=== PATIENT | male | born 1990 | race Two or more races ===

== ENCOUNTER 2025-01-09 12:35 | Emergency (ER) | payer MEDICAID, SELFPAY ==
[2025-01-09 12:36] VITALS: BMI 29.6
[2025-01-09 12:42] VITALS: BP 131/88; PULSE 86; RESP 19; TEMP 36.6; O2SAT 97
--- NOTE | 2025-01-09 12:55 | EDNOTE_ITS ---
Upper Respiratory Inf. RME/HPI General Stated Complaint: COUGH Time Seen by Provider: 01/09/25 12:54 Arrival date/time: 01/09/25 12:35 35-year-old male presents to the emergency department today for complaints of cough, congestion runny nose and generalized body aches patient for symptom onset 2 days ago reports not makes it is better or worse quality aching and no treatment prior to arrival Limitations: no limitations Related Data Home Medications ?Medication ?Instructions ?Recorded ?Confirmed tramadol 50 mg tablet 50 mg PO Q6H PRN Pain 03/04/19 Previous Rx's ?Medication ?Instructions ?Recorded ibuprofen 800 mg tablet 800 mg PO TID PRN pain #30 t abs 03/01/21 albuterol sulfate 2.5 mg/3 mL 2.5 mg (3 mL) inhalation Q6H PRN 07/26/21 (0.083 %) solution for nebulization shortness of breat h or wheezing #180 mL Ventolin HFA 90 mcg/actuation 2 puff inhalation Q6H DC N 01/09/25 aerosol inhaler (albuterol sulfate) shortness of breat h or wheezing #18 grams azithromycin 500 mg tablet See Rx Instructions PO .COM PLEX #6 01/09/25 tabs prednisone 10 mg tablet 30 mg (3 x 10 mg) PO BID 3 d ays 01/09/25 #18 tabs Allergies Allergy/AdvReac Type Severity Reaction Status Date / Time peanut Allergy Severe THROAT Verified 01/09/25 12:37 JASMIN Review of Systems Review of Systems Systems Reviewed: All systems reviewed, normal except as documented Constitutional Constitutional: Reports system reviewed and no additional complaints, except as documented, Denies fever(s) and Reports headache(s) Eyes Eyes: Reports system reviewed and no additional complaints, except as documented and Denies blurry vision ENT Ears, Nose, Mouth, and Throat: Reports system reviewed and no additional complaints, except as documented, Reports headache(s), Reports nasal congestion and Reports nasal discharge Cardiovascular Cardiovascular: Reports system reviewed and no additional complaints, except as documented, Denies chest pain and Denies dyspnea Respiratory Respiratory: Reports system reviewed and no additional complaints, except as documented, Reports chest congestion, Reports cough and Denies dyspnea Gastrointestinal Gastrointestinal: Reports system reviewed and no additional complaints, except as documented and Denies abdominal pain Integumentary/Breasts Skin/Breast: Reports system reviewed and no additional complaints, except as documented and Denies rash Neurologic Neurologic: Reports system reviewed and no additional complaints, except as documented, Reports as per HPI and Reports headache(s) Past Medical History Past Medical History CARDIAC: Negative Congestive Heart Failure RESPIRATORY: Positive Asthma; Negative Chronic Obstructive Pulmonary Disease (COPD) GENITOURINARY: Negative Renal Disease ENDOCRINE: Negative Diabetes Mellitus Type 1 or Diabetes Mellitus Type 2 Social History SMOKING STATUS: Never smoker ED Exam General Limitations: Present no limitations General appearance: Present alert and in no apparent distress Head Head exam: Present atraumatic Eye Eye exam: Present normal appearance, PERRL and EOMI ENT ENT exam: Present normal exam, normal oropharynx and mucous membranes moist Neck Neck exam: Present normal inspection, full ROM and trachea midline Chest Chest inspection: Present normal inspection and symmetric chest wall rise Respiratory Respiratory exam: Present normal lung sounds bilaterally; Absent respiratory distress, wheezes, stridor or accessory muscle use Cardiovascular Cardiovascular exam: Present regular rate, normal rhythm and normal heart sounds Abdominal Exam Abdominal exam: Present soft and normal bowel sounds; Absent distention, tenderness, guarding, rebound or rigidity Extremities Exam Extremities exam: Present normal inspection and full ROM Back Exam Back exam: Present normal inspection and full ROM Neurological Exam Neurological exam: Present alert, oriented X3 and CN II-XII intact Psychiatric Psychiatric exam: Present normal affect and normal mood Skin Skin exam: Present warm, dry, intact and normal color Course Quality Measures none Vital Signs Vital signs: Vital Signs Temperature 97.9 F 01/09/25 12:42 Pulse Rate 86 01/09/25 12:42 Respiratory Rate 19 01/09/25 12:42 Blood Pressure 131/88 H 01/09/25 12:42 Pulse Oximetry (%) 97 01/09/25 12:42 Oxygen Delivery Method Room Air 01/09/25 12:42 o2 sat 97 r.a wnl Upper Respiratory Infection MDM Narrative MDM Narrative:: 35-year-old male presents to the emergency department today for complaints of cough, congestion runny nose and generalized body aches patient for symptom onset 2 days ago reports not makes it is better or worse quality aching and no treatment prior to arrival On exam patient well-appearing patient does not appear ill or toxic no acute distress Lab work and imaging offered patient declined Symptoms consistent with URI Patient discharged home in no distress to follow-up with primary care doctor this 24 to 48 hours for worsening symptoms or concerns return immediately Patient data External records reviewed:: [facility] previous records Clinical information provided by:: patient Social determinants that could affect healthcare access:: none Patient has the following chronic illnesses:: URI How is presenting disease/condition affected by chronic disease/condition?: no chronic disease Evaluation data The following diagnostics were reviewed and interpreted by me:: other (specify) (N/A) Lab and/or radiology exams considered but not ordered:: Considered not ordered Interpretation Summary: N/A Medications / Prescriptions Medications or Prescriptions considered but not ordered:: Given Medication administrations:: Given Consultations Consultation(s) initiated? (list below): No Diagnosis Upper Respiratory Differential Diagnosis: upper respiratory infection, otitis media, sinusitis and viral infection Most likely diagnosis given after review of the tests above:: URI Admission Indicated Admission indicated?: not indicated Admission Request Was there a request for admission?: No Disposition Plan Disposition Plan: Discharge Discharge Attestation Discharge Attestation: The patient and all family members were given an opportunity to ask questions and understood the discharge instructions. Discharge instructions specifically effects, indications for sooner follow up or return to the emergency department, and the expected course of current diagnosis. Patient condition: Stable Discharge Plan Plan Patient Disposition: HOME (Self Care) Discharge Disposition comment: Stable Prescriptions/Referrals Prescriptions/Med Rec: New prednisone 10 mg tablet 30 mg PO BID 3 Days Qty: 18 0RF albuterol sulfate [Ventolin HFA] 90 mcg/actuation HFA aerosol inhaler 2 puff inhalation Q6H PRN (Reason: shortness of breath or wheezing) Qty: 18 0RF azithromycin 500 mg tablet See Rx Instructions .ROUTE .COMPLEX Qty: 6 0RF Rx Instructions: take 500 mg today (day 1), then 250 mg for 4 days (days 2-5) No Action ibuprofen 800 mg tablet 800 mg PO TID PRN (Reason: pain) Qty: 30 0RF tramadol 50 mg Tablet 50 mg PO Q6H PRN (Reason: Pain) albuterol sulfate 2.5 mg /3 mL (0.083 %) solution for nebulization 2.5 mg inhalation Q6H PRN (Reason: shortness of breath or wheezing) Qty: 180 0RF Problem List Clinical Impression: URI (upper respiratory infection) Patient/Caregiver Discharge Instructions Additional Instructions: Please follow up with your primary care doctor in the next 24-48hrs for any worsening symptoms return here immediately Print Language: Malawian Stand Alone Forms: Charmaine Award Info., Work/School Release, Patient Portal Info Letter PA/[employer] WORKER Supervising Physician PA/[employer] WORKER Supervising Physician: Dr. curran
== END 2025-01-09 14:19 | disposition home or self-care (01) ==
LOC: SERX 13:10
PROVIDERS: Emergency Provider Nurse Practitioner Primary Care; PCP Physician Assistant
DX: J06.9 Acute upper respiratory infection, unspecified (principal)
CPT/HCPCS: 99281